=== PATIENT | female | born 1965 | race Caucasian/White ===

== ENCOUNTER 2017-10-30 06:22 | Day surgery (SDC) | payer OTHER ==
[~2017-10-30] VITALS: Ht 157.5 cm; Wt 65.0 kg
[2017-10-30 06:39] VITALS: BP 178/110; PULSE 53; TEMP 98.2
[2017-10-30] MEDS ORDERED: DICLOFENAC SOD2.5 ML TOP (06:43)
[2017-10-30] MEDS ORDERED: WELLBUTRIN SR150 M1 PO (06:45)
[2017-10-30] MEDS ORDERED: DITROPAN XL10 MG PO (06:45)
[2017-10-30] MEDS ORDERED: KLONOPIN 0.5MG0.5 MG PO (06:46)
[2017-10-30] MEDS ORDERED: DESYREL 100MG100 MG PO (06:47)
[2017-10-30] MEDS ORDERED: PERIACTIN 4MG TA4 MG PO ×2 (06:47→06:49)
[2017-10-30] MEDS ORDERED: PROTONIX 40MG T40 MG PO (06:48)
[2017-10-30] MEDS ORDERED: EFFEXOR 75M75 MG/TAB PO (06:49)
[2017-10-30] MEDS ORDERED: ZOFRAN8 MG PO (06:50)
[2017-10-30 08:18] VITALS: BP 125/96; PULSE 62; TEMP 98.2
[2017-10-30 08:30] VITALS: BP 120/89; PULSE 73
[2017-10-30 08:45] VITALS: BP 135/87; PULSE 56
== END 2017-10-30 08:55 | disposition home or self-care (01) ==
LOC: SDCO 06:22
DX: K22.70 Barrett's esophagus without dysplasia (principal); K63.5 Polyp of colon; K21.9 Gastro-esophageal reflux disease without esophagitis; R19.7 Diarrhea, unspecified; K80.20 Calculus of gallbladder without cholecystitis without obstruction; Z88.0 Allergy status to penicillin; K66.8 Other specified disorders of peritoneum; K59.00 Constipation, unspecified; R19.4 Change in bowel habit
CPT/HCPCS: OP; J2250; J3010; J7030